=== PATIENT | female | born 1985 | race Caucasian/White ===

== ENCOUNTER → 2021-08-27 09:17 | Outpatient (CLI) | payer OTHER, SELFPAY ==
--- NOTE | ~2021-08-27 | MMUS_ITS ---
EXAMINATION: MM diagnostic manohar BI w [place], US breast BI complete HISTORY: Right breast lump TECHNIQUE: Bilateral full field and right spot 3-D tomosynthesis images were performed and synthetic 2-D images were generated. Bilateral rotated lateral cc views. CAD analysis was submitted and interpr eted. High resolution breast ultrasound was performed. COMPARISON: None BREAST PARENCHYMAL COMPOSITION: The breasts are heterogeneously dense, which may obscure small masses . FINDINGS: MAMMOGRAPHIC FINDINGS: No suspicious mass, architectural distortion, malignant calcification, skin thickening or retraction of either breast is evident. ULTRASOUND: Right breast: No suspicious mass or shadowing is detected. Left breast: 1:00 5 cm from nipple: 8.7 x 4.8 x 7.4 mm simple cyst IMPRESSION: 1. Benign finding; no mammographic evidence of malignancy 2. Routine mammographic screening is recommended. BI-RADS Category 2: Benign finding(s). Reviewed, dictated and finalized at location A. [facility] IMPRESSION: 1. Benign finding; no mammographic evidence of malignancy 2. Routine mammographic screening is recommended. BI-RADS Category 2: Benign finding(s).
== END ==
PROVIDERS: PCP Family Medicine; Visit Provider Advanced Practice Midwife
DX: N60.02 Solitary cyst of left breast (principal)
CPT/HCPCS: 76641; 77062; 77066; G0279